=== PATIENT | female | born 1995 | race Caucasian/White ===

== ENCOUNTER 2017-01-20 13:16 | Emergency (ER) | payer OTHER ==
[2017-01-20] MEDS ORDERED: NS 0.9% 1000 ML*IV.FLUID IV ONE (13:45)
[2017-01-20] MEDS ORDERED: Ondansetron INJ* 2 MG/ML VIAL IV ONE ×2 (13:56→15:49)
[2017-01-20] MEDS ORDERED: NS 0.9% 1000 ML* 1,000 ML IV ONE (13:56)
[2017-01-20] MEDS ORDERED: Acetaminophen TAB* 325 MG PO ONE (13:56)
[2017-01-20 14:06] LABS: Hematocrit 41 % (35-47); Hemoglobin 13.9 g/dl (12.0-16.0); Mean Corpuscular HGB Conc 34 g/dl (31-36); Mean Corpuscular Hemoglobin 26 pg (27-31); Mean Corpuscular Volume 79 fL (80-97); Mean Platelet Volume 9 um3 (7.4-10.4); Red Blood Count 5.27 10^6/ul (4.0-5.4); Red Cell Distribution Width 13 % (10.5-15); White Blood Count 9.2 10^3/ul (3.5-10.8)
[2017-01-20 14:18] LABS: ALT 9 U/L (7-52); AST 11 U/L (13-39); Albumin 4.5 g/dL (3.2-5.2); Alkaline Phosphatase 43 U/L (34-104); Anion Gap 7 mmol/L (2-11); BUN/Creatinine Ratio 19.6 (8-20); Blood Urea Nitrogen 11 mg/dL (6-24); C Reactive Protein < 1.00 mg/L (< 5.00); CO2 Carbon Dioxide 23 mmol/L (22-32); Calcium 9.6 mg/dL (8.6-10.3); Chloride 103 mmol/L (101-111); EGFR African American 175.7 (>60); EGFR Non-African American 136.7 (>60); Globulin 2.8 g/dL (2-4); Glucose 102 mg/dL (70-100); Lipase 11 U/L (11.0-82.0); Potassium 3.2 mmol/L (3.5-5.0); Sodium 133 mmol/L (133-145); Total Protein 7.3 g/dL (6.4-8.9)
[2017-01-20 15:26] LABS: Urine Bacteria Absent (Absent); Urine Bilirubin Negative (Negative); Urine Glucose Negative (Negative); Urine Nitrite Negative (Negative)
[2017-01-20] MEDS ORDERED: Ondansetron ODT TAB* 4 MG PO ONE (15:49)
--- NOTE | 2017-01-20 15:52 | RAD ---
INDICATION: Early . Evaluate for ectopic COMPARISON: None TECHNIQUE: Transvaginal scanning was performed. FINDINGS: There is a single intrauterine gestation with documentation of pole, yolk sac, and cardiac activity of 93 bpm. The crown rump length measurement corresponds to a 5 week 6 day gestation and the sac size measurement to a 7 week 0 day gestation Both adnexal regions appear normal. The right ovary measures 3.4 x 4.1 x 2.7 cm in the left 4.5 x 2.5 x 3.6 cm. There is no adnexal mass. There is no subchorionic hemorrhage. There is no free fluid. IMPRESSION: EARLY INTRAUTERINE GESTATION BETWEEN 5 WEEKS 6 DAYS AND 7 WEEKS 0 DAYS.
--- NOTE | 2017-01-20 15:55 | ED ---
Abdominal Pain/Female - HPI Summary HPI Summary: 21 female presents with complains of nausea, vomiting, diarrhea and some LLQ pain that began yesterday. Nausea, vomiting and diarrhea began today. Patient states she has vomited approximately 8 times and the last few times were bile. She also has been having diarrhea. Denies any blood in vomit or stool. Has not taken any medication and has been unable to keep any food or drink down. Denies fever/chills or any eating out at restaurants recently. She took 4 at home urine tests that were all positive. ~6 weeks . Patient denies urinary frequency, urgency, burning and vaginal bleeding or discharge. Patient was told by her OBGYN it would be very difficult to become due to her endometriosis. Patient is on control however stopped taking once she had positive test. She just started a new OCP that she has been taking the past month. - History of Current Complaint Chief Complaint: EDJoaquinauseaVomitFabio Stated Complaint: 6 WEEKS PREG, VOMITING, DIARRHEA Time Seen by Provider: 01/20/17 13:25 Hx Obtained From: Patient Hx Last Menstrual Period: 12/14/15 ?: Yes Onset/Duration: Sudden Onset, Lasting Days, Worse Since Timing: Minutes Severity Initially: Mild Severity Currently: Mild Pain Intensity: 3 Pain Scale Used: 0-10 Numeric Location: Discrete At: LLQ Radiates: No Character: Cramping Aggravating Factor(s): Nothing Alleviating Factor(s): Nothing Associated Signs and Symptoms: Positive: Decreased Appetite, Nausea, Vomiting, Diarrhea. Negative: Fever, Cough, Blood in Stool, Urinary Symptoms, Vaginal Bleeding, Vaginal Discharge Allergies/Adverse Reactions: Allergies Allergy/AdvReac Type Severity Reaction Status Date / Time Shrimp Flavor Allergy Mild Dizziness Verified 12/16/15 13:24 Penicillin G Allergy Vomiting Verified 08/09/16 11:21 Tomato Allergy Headache Verified 12/16/15 13:24 potatoes Allergy Headache Uncoded 12/16/15 13:24 PMH/Surg Hx/FS Hx/Imm Hx Endocrine/Hematology History: Reports: Hx Anemia - low iron Denies: Hx Diabetes, Hx Thyroid Disease Cardiovascular History: Denies: Hx Hypercholesterolemia, Hx Hypertension, Hx Pacemaker/ICD, Hx Peripheral Vascular Disease Respiratory History: Denies: Hx Asthma, Hx Chronic Obstructive Pulmonary Disease (COPD) GI History: Reports: Other GI Disorders - HX OVARIAN CYSTS AND ENDOMETRIOSIS Denies: Hx Ulcer History: Reports: Other Problems/Disorders - endometriosis, high risk Musculoskeletal History: Denies: Hx Arthritis, Hx Rheumatoid Arthritis, Hx Osteoporosis Sensory History: Denies: Hx Cataracts, Hx Contacts or Glasses, Hx Glaucoma, Hx Hearing Aid Opthamlomology History: Denies: Hx Cataracts, Hx Contacts or Glasses, Hx Glaucoma Neurological History: Reports: Hx Headaches, Hx Migraine Denies: Hx Seizures, Hx Transient Ischemic Attacks (TIA) Psychiatric History: Denies: Hx Anxiety, Hx Depression, Hx Panic Disorder - Surgical History Surgery Procedure, Year, and Place: APPENDECTOMY 07/25/2014. foot fusion x 2. Molar extraction. Hx Anesthesia Reactions: No Infectious Disease History: No Infectious Disease History: Denies: Hx Hepatitis, Hx Human Immunodeficiency Virus (HIV), History Other Infectious Disease, Traveled Outside the [place] in Last 30 Days - Family History Known Family History: Positive: None - Social History Alcohol Use: None Hx Substance Use: No Substance Use Type: Reports: None Hx Tobacco Use: No Smoking Status (MU): Never Smoked Tobacco Review of Systems Constitutional: Negative Cardiovascular: Negative Respiratory: Negative Positive: Abdominal Pain, Vomiting, Diarrhea, Nausea Genitourinary: Negative Musculoskeletal: Negative Skin: Negative Neurological: Negative Psychological: Normal All Other Systems Reviewed And Are Negative: Yes Physical Exam Triage Information Reviewed: Yes Vital Signs On Initial Exam: Initial Vitals Temp Pulse Resp BP Pulse Ox 98.2 F 97 18 111/64 98 01/20/17 13:18 01/20/17 13:18 01/20/17 13:18 01/20/17 13:18 01/20/17 13:18 Vital Signs Reviewed: Yes Appearance: Positive: Well-Appearing, No Pain Distress, Well-Nourished Skin: Positive: Warm, Skin Color Reflects Adequate Perfusion, Dry Head/Face: Positive: Normal Head/Face Inspection Eyes: Positive: Normal, Conjunctiva Clear ENT: Positive: Normal ENT inspection, Hearing grossly normal, Pharynx normal, TMs normal. Negative: Nasal congestion, Nasal drainage Dental: Negative: Percussion Tenderness @, Cervical Lymphadenopathy Neck: Positive: Supple, Nontender, No Lymphadenopathy Respiratory/Lung Sounds: Positive: Clear to Auscultation, Breath Sounds Present Cardiovascular: Positive: Normal, RRR, Pulses are Symmetrical in both Upper and Lower Extremities Abdomen Description: Positive: No Organomegaly, Soft, Other: - minimal tenderness on deep palpation of lower LLQ.. Negative: Bruit, CVA Tenderness (R) , CVA Tenderness (L), Distended, Guarding, McBurney's Point Tenderness, Peritoneal Signs Bowel Sounds: Positive: Present, Hyperactive Pelvic Exam: Positive: external exam normal, speculum exam normal, bimanual exam normal, no cerv. motion tender, no masses, active bleeding, discharge - appeared normal. Negative: blood, cervicitis, lesions, mass, tender w/ cervical motion, tender adnexa, tender uterus Musculoskeletal: Positive: Normal, Strength/ROM Intact Neurological: Positive: Normal, Sensory/Motor Intact, Alert, Oriented to Person Place, Time, CN Intact II-III, Reflexes Intact Psychiatric: Positive: Normal, Affect/Mood Appropriate Diagnostics - Vital Signs Vital Signs Temp Pulse Resp BP Pulse Ox 01/20/17 13:33 70 116/69 98 01/20/17 13:31 73 98 01/20/17 13:18 98.2 F 97 18 111/64 98 - Laboratory Lab Results: Lab Results 01/20/17 01/20/17 01/20/17 Range/Units 13:35 13:35 13:35 WBC 9.2 (3.5-10.8) 10^3/ul RBC 5.27 (4.0-5.4) 10^6/ul Hgb 13.9 (12.0-16.0) g/dl Hct 41 (35-47) % MCV 79 L (80-97) fL MCH 26 L (27-31) pg MCHC 34 (31-36) g/dl RDW 13 (10.5-15) % Plt Count 223 (150-450) 10^3/ul MPV 9 (7.4-10.4) um3 Neut % (Auto) 85.5 H (38-83) % Lymph % (Auto) 9.8 L (25-47) % [place] % (Auto) 3.6 (1-9) % Eos % (Auto) 0.3 (0-6) % Baso % (Auto) 0.8 (0-2) % Absolute Neuts (auto) 7.9 H (1.5-7.7) 10^3/ul Absolute Lymphs (auto) 0.9 L (1.0-4.8) 10^3/ul Absolute Monos (auto) 0.3 (0-0.8) 10^3/ul Absolute Eos (auto) 0 (0-0.6) 10^3/ul Absolute Basos (auto) 0.1 (0-0.2) 10^3/ul Absolute Nucleated RBC 0 10^3/ul Nucleated RBC % 0 Sodium 133 (133-145) mmol/L Potassium 3.2 L (3.5-5.0) mmol/L Chloride 103 (101-111) mmol/L Carbon Dioxide 23 (22-32) mmol/L Anion Gap 7 (2-11) mmol/L BUN 11 (6-24) mg/dL Creatinine 0.56 (0.51-0.95) mg/dL Est GFR ( Amer) 175.7 (>60) Est GFR (Non-Af Amer) 136.7 (>60) BUN/Creatinine Ratio 19.6 (8-20) Glucose 102 H (70-100) mg/dL Lactic Acid 0.7 (0.5-2.0) mmol/L Calcium 9.6 (8.6-10.3) mg/dL Total Bilirubin 0.70 (0.2-1.0) mg/dL AST 11 L (13-39) U/L ALT 9 (7-52) U/L Alkaline Phosphatase 43 (34-104) U/L C-Reactive Protein < 1.00 (< 5.00) mg/L Total Protein 7.3 (6.4-8.9) g/dL Albumin 4.5 (3.2-5.2) g/dL Globulin 2.8 (2-4) g/dL Albumin/Globulin Ratio 1.6 (1-3) Lipase 11 (11.0-82.0) U/L Beta HCG, Quant 17596.00 mIU/mL Urine Color Urine Appearance Urine pH (5-9) Ur Specific [place] (1.010-1.030) Urine Protein (Negative) Urine Ketones (Negative) Urine Blood (Negative) Urine Nitrate (Negative) Urine Bilirubin (Negative) Urine Urobilinogen (Negative) Ur Leukocyte Esterase (Negative) Urine WBC (Auto) (Absent) Urine RBC (Auto) (Absent) Ur Squamous Epith Cells (Absent) Urine Bacteria (Absent) Urine Glucose (Negative) 01/20/17 Range/Units 15:04 WBC (3.5-10.8) 10^3/ul RBC (4.0-5.4) 10^6/ul Hgb (12.0-16.0) g/dl Hct (35-47) % MCV (80-97) fL MCH (27-31) pg MCHC (31-36) g/dl RDW (10.5-15) % Plt Count (150-450) 10^3/ul MPV (7.4-10.4) um3 Neut % (Auto) (38-83) % Lymph % (Auto) (25-47) % [place] % (Auto) (1-9) % Eos % (Auto) (0-6) % Baso % (Auto) (0-2) % Absolute Neuts (auto) (1.5-7.7) 10^3/ul Absolute Lymphs (auto) (1.0-4.8) 10^3/ul Absolute Monos (auto) (0-0.8) 10^3/ul Absolute Eos (auto) (0-0.6) 10^3/ul Absolute Basos (auto) (0-0.2) 10^3/ul Absolute Nucleated RBC 10^3/ul Nucleated RBC % Sodium (133-145) mmol/L Potassium (3.5-5.0) mmol/L Chloride (101-111) mmol/L Carbon Dioxide (22-32) mmol/L Anion Gap (2-11) mmol/L BUN (6-24) mg/dL Creatinine (0.51-0.95) mg/dL Est GFR ( Amer) (>60) Est GFR (Non-Af Amer) (>60) BUN/Creatinine Ratio (8-20) Glucose (70-100) mg/dL Lactic Acid (0.5-2.0) mmol/L Calcium (8.6-10.3) mg/dL Total Bilirubin (0.2-1.0) mg/dL AST (13-39) U/L ALT (7-52) U/L Alkaline Phosphatase (34-104) U/L C-Reactive Protein (< 5.00) mg/L Total Protein (6.4-8.9) g/dL Albumin (3.2-5.2) g/dL Globulin (2-4) g/dL Albumin/Globulin Ratio (1-3) Lipase (11.0-82.0) U/L Beta HCG, Quant mIU/mL Urine Color Yellow Urine Appearance Cloudy Urine pH 5.0 (5-9) Ur Specific [place] 1.012 (1.010-1.030) Urine Protein Negative (Negative) Urine Ketones 2+ H (Negative) Urine Blood 1+ H (Negative) Urine Nitrate Negative (Negative) Urine Bilirubin Negative (Negative) Urine Urobilinogen Negative (Negative) Ur Leukocyte Esterase 2+ H (Negative) Urine WBC (Auto) Trace(0-5/hpf) (Absent) Urine RBC (Auto) 2+(6-10/hpf) H (Absent) Ur Squamous Epith Cells Present H (Absent) Urine Bacteria Absent (Absent) Urine Glucose Negative (Negative) Result Diagrams: 01/20/17 13:35 01/20/17 13:35 Lab Statement: Any lab studies that have been ordered have been reviewed, and results considered in the medical decision making process. - Ultrasound No standard instances Ultrasound Interpretation: Positive (See Comments) - EARLY INTRAUTERINE GESTATION BETWEEN 5 WEEKS 6 DAYS AND 7 WEEKS 0 DAYS. Ultrasound Interpretation Completed By: Radiologist Re-Evaluation - Re-Evaluation First Eval Re-Evaluation Time: 15:53 Change: Improved - patient is feeling much better and is without pain Abdominal Pain Fem Course/Dx - Course Course Of Treatment: Basic labds, UA, HCG preg and ultrasound ordered. Ultrasound positive for but negative for any abnormalities or acute illness, endometrosis, ovarian cysts etc. patient had appendix out. Given Fluids , zofran and tylenol for pain and nausea. Normal pelvic and PE exam. Patient had significant relief. Was feeling much better. Appears she may have a viral syndrome due to the vomiting and diarrhea. also may be nauseous from the . Educated. Patient will be given medication safe to use in for nausea. told to take acetaminophen for pain/discomfort only if needed. Aware there was some bacteria and blood in urine however without symptoms and high suspicion for UTI will wait for culture to see if treatment is necessary. - Diagnoses Differential Diagnosis: Positive: Constipation, Ectopic , Ovarian Cyst , , Urinary Tract Infection, Other - gastroenteritis Provider Diagnoses: Gastroenteritis, Nausea/vomiting in Discharge - Discharge Plan Condition: Stable Disposition: HOME Prescriptions: Doxylamine/Pyridoxine(NF) [Diclegis (NF)] 1 tab PO BID PRN #10 tab PRN Reason: Nausea Patient Education Materials: Nausea and Vomiting in (ED), Gastroenteritis (ED) Referrals: Manuel Garber MD [Primary Care Provider] - Additional Instructions: Take prescribed medication as directed for nausea as needed. Drink plenty of fluids to stay well hydrated. Stick to bland foods such as bananas, rice, applesauce and toast to help with diarrhea. Make sure to go to your appointment with your OBGYN on Tuesday and let them know about your visit here. If you develop new symptoms or if symptoms worsen such as increasing abdominal pain, vaginal bleeding/discharge, urinary burning, frequency, vomiting blood, blood in stool please seek medical attention promptly. Tylenol is the only approved safe pain medication OTC to take while if you have headache/pain. Avoid and only take when needed.
[2017-01-20 16:14] VITALS: BP 108/60
--- NOTE | 2017-01-22 15:21 | PN ---
Progress Note - Progress Note Note: Garnderella/yeast: vaginal DNA Final: Positive Juanita Called to patient. Left message with results. Prescription for miconozole 4% cream topical sent to pharmacy d/t patient status.
== END 2017-01-20 16:13 | disposition home or self-care (01) ==
LOC: ED 13:16
DX: O26.891 Other specified pregnancy related conditions, first trimester (principal); Z3A.01 Less than 8 weeks gestation of pregnancy; R11.2 Nausea with vomiting, unspecified; R10.32 Left lower quadrant pain; R19.7 Diarrhea, unspecified
CPT/HCPCS: 36415; 76817; 80053; 81003; 81015; 83605; 83690; 84702; 85025; 86140; 87086; 87480; 87510; 87660; 96374; 96376; 99283; A9270-GY; J2405

== ENCOUNTER → 2017-10-13 00:37 | Emergency (ER) | payer OTHER ==
[2017-10-13 00:46] VITALS: BP 129/61
== END | disposition left against medical advice (07) ==
LOC: ED 00:37
DX: O20.9 Hemorrhage in early pregnancy, unspecified (principal); Z3A.09 9 weeks gestation of pregnancy; N93.9 Abnormal uterine and vaginal bleeding, unspecified; Z53.21 Procedure and treatment not carried out due to patient leaving prior to being seen by health care provider

== ENCOUNTER 2018-01-30 14:34 | Emergency (ER) | payer OTHER ==
[2018-01-30] MEDS ORDERED: NS 0.9% 1000 ML* 1,000 ML IV ONE (15:30)
--- NOTE | 2018-01-30 15:38 | ED ---
GI/ HPI - HPI Summary HPI Summary: 22 female at 25 weeks presents with lower abdominal pain and back pain for the past day. She states feels like contractions every couple hours that last hour. She states she has started spotting. She states she is been evaluated by her OB office was sent to labor and delivery for monitoring. She states the contractions pain so bad that she vomited once. Labor and delivery sent her here to evaluate for GI bug. She denies any fevers. She denies any nausea vomiting. pain is with the contractions. She denies any cough or sore throat. She denies any recent illness. She has never had this pain before. ob is dr glass. - History of Current Complaint Chief Complaint: EDAbdPain Time Seen by Provider: 01/30/18 15:18 Stated Complaint: ABD PAIN Hx Last Menstrual Period: 12/14/15 Pain Intensity: 6 - Allergy/Home Medications Allergies/Adverse Reactions: Allergies Allergy/AdvReac Type Severity Reaction Status Date / Time Penicillins Allergy Nausea And Verified 01/30/18 14:42 Vomiting shrimp Allergy Dizziness Verified 01/30/18 14:42 tomato Allergy Headache Verified 01/30/18 14:42 potatoes Allergy Headache Uncoded 01/30/18 14:42 PMH/Surg Hx/FS Hx/Imm Hx Endocrine/Hematology History: Reports: Hx Anemia - low iron Denies: Hx Diabetes, Hx Thyroid Disease Cardiovascular History: Denies: Hx Hypercholesterolemia, Hx Hypertension, Hx Pacemaker/ICD, Hx Peripheral Vascular Disease Respiratory History: Denies: Hx Asthma, Hx Chronic Obstructive Pulmonary Disease (COPD) GI History: Reports: Other GI Disorders - HX OVARIAN CYSTS AND ENDOMETRIOSIS Denies: Hx Ulcer History: Reports: Other Problems/Disorders - endometriosis, high risk Musculoskeletal History: Denies: Hx Arthritis, Hx Rheumatoid Arthritis, Hx Osteoporosis Sensory History: Denies: Hx Cataracts, Hx Contacts or Glasses, Hx Glaucoma, Hx Hearing Aid Opthamlomology History: Denies: Hx Cataracts, Hx Contacts or Glasses, Hx Glaucoma Neurological History: Reports: Hx Headaches, Hx Migraine Denies: Hx Seizures, Hx Transient Ischemic Attacks (TIA) Psychiatric History: Denies: Hx Anxiety, Hx Depression, Hx Panic Disorder - Surgical History Surgery Procedure, Year, and Place: APPENDECTOMY 07/25/2014. foot fusion x 2. Molar extraction. Hx Anesthesia Reactions: No Infectious Disease History: No Infectious Disease History: Denies: Hx Hepatitis, Hx Human Immunodeficiency Virus (HIV), History Other Infectious Disease, Traveled Outside the [place] in Last 30 Days - Family History Known Family History: Positive: None - Social History Alcohol Use: None Hx Substance Use: No Substance Use Type: Reports: None Hx Tobacco Use: No Smoking Status (MU): Never Smoked Tobacco Review of Systems Negative: Fever Negative: Chest Pain Negative: Shortness Of Breath Positive: Abdominal Pain, Vomiting All Other Systems Reviewed And Are Negative: Yes Physical Exam Triage Information Reviewed: Yes Vital Signs On Initial Exam: Initial Vitals Temp Pulse Resp BP Pulse Ox 97.8 F 87 16 110/68 97 01/30/18 14:36 01/30/18 14:36 01/30/18 14:36 01/30/18 14:36 01/30/18 14:36 Vital Signs Reviewed: Yes Appearance: Positive: Well-Appearing Skin: Positive: Warm, Dry Head/Face: Positive: Normal Head/Face Inspection Eyes: Positive: Normal, EOMI, BLANCHE, Conjunctiva Clear ENT: Positive: Normal ENT inspection, Pharynx normal, TMs normal Respiratory/Lung Sounds: Positive: Clear to Auscultation, Breath Sounds Present Cardiovascular: Positive: Normal, RRR Abdomen Description: Positive: Nontender, Soft, Other: - baby felt above umblicius Bowel Sounds: Positive: Present Musculoskeletal: Positive: Normal Neurological: Positive: Normal Psychiatric: Positive: Normal Diagnostics - Vital Signs Vital Signs Temp Pulse Resp BP Pulse Ox 01/30/18 14:36 97.8 F 87 16 110/68 97 - Laboratory Result Diagrams: 01/30/18 15:37 01/30/18 15:37 Lab Statement: Any lab studies that have been ordered have been reviewed, and results considered in the medical decision making process. GIGU Course/Dx - Course Course Of Treatment: 22 female at 25 weeks presents with lower abdominal pain and back pain for the past day. She had contractions every couple hours that last hour. She states she has started spotting. She states she is been evaluated by her OB office was sent to labor and delivery. She states the contractions pain so bad that she vomited once. Labor and delivery sent her here to evaluate for GI bug. She denies any fevers. She denies any nausea vomiting. pain is with the contractions. She denies any cough or sore throat. She denies any recent illness. She has never had this pain before. on exam abdomen soft nontender. baby felt above the umbilicus. Vitals stable. labs wbc 11. crp normal. normal rythmn stript here. will discuss with ob if needs more monitoring here. nurse talked with provider from ob and said safe to go home. told if symptoms return to call ob. patient understand and agrees with plan. - Diagnoses Differential Diagnoses - Female: Gastroenteritis (Viral), Gastroenteritis ( Bacterial), Urinary Tract Infection Provider Diagnoses: Abdominal pain during Discharge - Discharge Plan Condition: Good Disposition: HOME Patient Education Materials: Abdominal Pain in (ED) Referrals: Audra Dyson MD [Primary Care Provider] - Additional Instructions: Take tyenlol for symptoms every 6 hours Follow up with obgyn Call obgyn if contractions get closer together Return to ED if develop any new or worsening symptoms
[2018-01-30 15:55] LABS: ABS Basophils 0 10^3/ul (0-0.2); ABS Eosinophils 0.1 10^3/ul (0-0.6); ABS Lymphocytes 1.2 10^3/ul (1.0-4.8); ABS Monocytes 0.6 10^3/ul (0-0.8); ABS Neutrophils 9.7 10^3/ul (1.5-7.7); ABS Nucleated RBC 0 10^3/ul; Hematocrit 32 % (35-47); Hemoglobin 10.9 g/dl (12.0-16.0); Lymphocyte % 10.3 % (25-47); Mean Corpuscular HGB Conc 34 g/dl (31-36); Mean Corpuscular Hemoglobin 27 pg (27-31); Mean Corpuscular Volume 79 fL (80-97); Mean Platelet Volume 8 um3 (7.4-10.4); Nucleated Red Blood Cells % 0; Platelet Count 237 10^3/ul (150-450); Red Blood Count 4.09 10^6/ul (4.0-5.4); Red Cell Distribution Width 14 % (10.5-15); White Blood Count 11.6 10^3/ul (3.5-10.8)
[2018-01-30 16:46] LABS: EGFR Non-African American 161.7 (>60)
[2018-01-30 18:08] VITALS: BP 116/73
== END 2018-01-30 18:09 | disposition home or self-care (01) ==
LOC: ED 14:34
DX: O26.899 Other specified pregnancy related conditions, unspecified trimester (principal); R10.30 Lower abdominal pain, unspecified; R11.10 Vomiting, unspecified
CPT/HCPCS: 36415; 80053; 83690; 85025; 86141; 87502; 99283

== ENCOUNTER 2018-04-30 03:02 | Inpatient (IN) | payer OTHER ==
--- NOTE | 2018-04-30 05:00 | HP ---
General Information - General Information Maternal Age: 22 Grav: 3 Para: 0 SAB: 2 IEA: 0 Estimated Due Date: 05/18/18 Determined By: Early Ultrasound Gestational Age in Weeks and Days: 37 Weeks and 3 Days Maternal Blood Type and Rh: A Positive - Results this Serology/RPR Result: Non-Reactive Rubella Result: Immune HBsAg Result: Negative HIV Result: Negative GBS Culture Result: Positive Past Medical History Delivery History: See Records - molar x2 Pertinent Past Medical History: Non-Contributory Pertinent Past Surgical History: See Records Past Surgical History Comment: foot surgery x3, appy, D&C x2 Pertinent Family History: Non-Contributory - Antepartal Records Antepartal Records: Reviewed, Uncomplicated Review of Systems Constitutional: Uncomfortable CV Complaint: No Respiratory: Shortness of Breath: No Gastrointestinal: No Nausea/Vomiting Genitourinary: Leaking Fluid, No Bleeding Musculoskeletal: No Complaint Movement: Normal Exam Allergies/Adverse Reactions: Allergies Penicillins Allergy (Verified 03/09/18 23:12) Nausea And Vomiting shrimp Allergy (Verified 03/09/18 23:12) Dizziness tomato Allergy (Verified 03/09/18 23:12) Headache potatoes Allergy (Uncoded 03/09/18 23:12) Headache normal, afebrile Lab Values - Entire Visit: Laboratory Tests 04/30/18 04:00 Vag Amniotic Fld Detect Positive - Measurements Height: 5 ft 2 in Weight: 152 lb Weight in lbs: 152 Body Mass Index (BMI): 27.8 Pre- Weight: 134 lb Weight Gained This : 18 lbs and 0 ozs - Exam Abdomen: No Upper Quadrant Pain Breast: Breast Exam Deferred Heart: Normal Rhythm/Heart Sounds Lungs: Clear Bilaterally Rectal: Rectal Exam Deferred - Abdominal Exam Abdomen Exam: Non-Tender, Fundal Height Consistent with Dates - Ultrasound/Biophysical Profile Ultrasound Status: Not Done Targeted Exam Findings Cervical Exam: 3cm Effacement: 70% Station: -1 Presenting Part: Vertex Membrane Status: SROM Amniotic Fluid Evaluation: Gross Rupture, Positive ROM Plus EFM Findings - External Monitor Findings Baseline Heart Rate: 140 External Monitor Findings: Accelerations Present, No Pattern of Variable or Late Decelerations, Variability Moderate Contractions: Regular, Moderate Contraction Frequency: Q2 min Assessment/Plan - Reason for Visit Reason for Visit: 22yo at 37 wks with gross SROM at 0200 and early labor. Requesting epidural. Reassuring status. Plan PCN for GBS (pt has only had nausea with PO abx) - Obstetrical Risk Factors Obstetrical Risk Factors: GBS Positive - Plan Plan: Active Labor, Antibiotic Prophylaxis - Date/Time of Admission Date of Admission: 04/30/18 Time of Admission: 04:45
[2018-04-30] MEDS ORDERED: Penicillin G Potassium IV* 5,000,000 UNITS in NS 0.9% 100 ML* 100 ML IVPB ONE (05:30)
[2018-04-30] MEDS ORDERED: OBEPIDURAL* 250 ML EPIDURAL ONE (05:31)
[2018-04-30] MEDS ORDERED: fentaNYL* 50 MCG/ML 2 ML VIAL (100 MCG VIAL) ONE (05:32)
[2018-04-30 05:47] LABS: Hematocrit 33 % (35-47); Hemoglobin 10.7 g/dl (12.0-16.0); Mean Corpuscular HGB Conc 33 g/dl (31-36); Mean Corpuscular Hemoglobin 23 pg (27-31); Mean Corpuscular Volume 70 fL (80-97); Mean Platelet Volume 8.2 um3 (7.4-10.4); Platelet Count 259 10^3/ul (150-450); Red Blood Count 4.67 10^6/ul (4.00-5.40); Red Cell Distribution Width 15 % (10.5-15); White Blood Count 10.8 10^3/ul (3.5-10.8)
[2018-04-30 05:48] LABS: ABS Basophils 0.1 10^3/ul (0-0.2); ABS Eosinophils 0.1 10^3/ul (0-0.6); ABS Lymphocytes 1.8 10^3/ul (1.0-4.8); ABS Monocytes 0.7 10^3/ul (0-0.8); ABS Neutrophils 8.1 10^3/ul (1.5-7.7)
[2018-04-30 06:51] LABS: ABS Nucleated RBC 0 10^3/ul; Lymphocyte % 16.2 % (25-47); Nucleated Red Blood Cells % 0
[2018-04-30] MEDS: Penicillin G Potassium IV* 2,500,000 UNITS in NS 0.9% 100 ML* 100 ML IVPB SCH ×2 (10:17→14:02)
[2018-04-30] MEDS ORDERED: Oxytocin in LR* 20 UNITS/1,000 ML BAG IVPB ONE (14:07)
[2018-04-30] MEDS ORDERED: Witch Hazel PAD* JAR TOPICAL PRN (14:22)
[2018-04-30] MEDS ORDERED: Dibucaine 1% 28.35 GM TUBE PR PRN (14:22)
[2018-04-30] MEDS ORDERED: Acetaminophen TAB* 325 MG PO PRN (14:22)
--- NOTE | 2018-04-30 14:35 | PROCNOTE ---
[facility] OB: Delivery Note - Delivery A Date of : 04/30/18 Time of : 14:03 Weight at : 6 lb 13 oz Score 1 Minute: 8 Score 5 Minutes: 9 Gestational Age in Weeks and Days at Delivery: 37 Weeks and 3 Days Delivery Method: Spontaneous Vaginal Labor: Spontaneous Did Patient attempt ?: N/A, No Previous Amniotic Fluid: Clear Estimated Blood Loss: 350 Anesthesia/Analgesia: CEI for Labor Delivered By: Lizzie Kinsey - Perineum Perineal Injury: Vaginal Laceration - Small left lateral repaired with 3-0 Vicryl Rapide Perineal Repair: By Delivering Practioner - Events Delivery Events of Note: Full Course of Antibiotics
[2018-04-30] MEDS ORDERED: Oxytocin in LR* 20 UNITS/1,000 ML BAG IVPB SCH (15:00)
[2018-04-30] MEDS ORDERED: Simethicone TAB* 80 MG TAB.CHEW PO SCH (17:30)
[2018-04-30] MEDS: Ibuprofen TAB* 600 MG PO PRN (18:04)
[2018-04-30] MEDS: Docusate CAP* 100 MG PO SCH (21:22)
[2018-05-01] MEDS: Ibuprofen TAB* 600 MG PO PRN ×4 (00:04→20:17)
[2018-05-01 06:29] LABS: ABS Basophils 0.1 10^3/ul (0-0.2); ABS Eosinophils 0.1 10^3/ul (0-0.6); ABS Lymphocytes 2.2 10^3/ul (1.0-4.8); ABS Monocytes 0.8 10^3/ul (0-0.8); ABS Neutrophils 10.8 10^3/ul (1.5-7.7); ABS Nucleated RBC 0 10^3/ul; Hematocrit 27 % (35-47); Hemoglobin 8.9 g/dl (12.0-16.0); Lymphocyte % 15.7 % (25-47); Mean Corpuscular HGB Conc 33 g/dl (31-36); Mean Corpuscular Hemoglobin 23 pg (27-31); Mean Corpuscular Volume 70 fL (80-97); Mean Platelet Volume 8.1 um3 (7.4-10.4); Nucleated Red Blood Cells % 0; Platelet Count 205 10^3/ul (150-450); Red Blood Count 3.87 10^6/ul (4.00-5.40); Red Cell Distribution Width 16 % (10.5-15); White Blood Count 14.1 10^3/ul (3.5-10.8)
[2018-05-01] MEDS: Ferrous Gluconate TAB* 324 MG TAB PO SCH ×2 (09:03→20:17)
[2018-05-01] MEDS: Docusate CAP* 100 MG PO SCH ×3 (09:03→20:17)
[2018-05-02] MEDS: Docusate CAP* 100 MG PO SCH (07:53)
[2018-05-02] MEDS: Ibuprofen TAB* 600 MG PO PRN (07:53)
[2018-05-02] MEDS: Ferrous Gluconate TAB* 324 MG TAB PO SCH (09:04)
[2018-05-02 09:26] VITALS: BP 122/65
== END 2018-05-02 14:10 | disposition home or self-care (01) | DRG 775 ==
LOC: MCHOBOUT 03:02 → MCHOB 04:43
PROVIDERS: ADMIT Obstetrics & Gynecology; ATTEND Obstetrics & Gynecology
PROC: 10E0XZZ Delivery of Products of Conception, External Approach (ICD-10-PCS; principal; 2018-04-30)
PROC: 0DQR0ZZ Repair Anal Sphincter, Open Approach (ICD-10-PCS; 2018-04-30)
DX: O42.02 Full-term premature rupture of membranes, onset of labor within 24 hours of rupture (principal); O71.4 Obstetric high vaginal laceration alone; O99.824 Streptococcus B carrier state complicating childbirth; Z3A.37 37 weeks gestation of pregnancy; Z37.0 Single live birth
CPT/HCPCS: 36415; 84112; 85025; 86850; 86900; 86901; A9270-GY; J2540; J3010

== ENCOUNTER 2018-06-01 06:03 | Day surgery (SDC) | payer OTHER, MEDICAID ==
[~2018-06-01 06:03] MED LIST: Buffered Lidocaine 0.9% SYRIN* 5 ML/SYR SYRINGE INTRADERM ONE; Dexamethasone IV* 4 MG/ML 1 ML (4 MG) IV SLOW PU ONE; Famotidine IV* 10 MG/ML 2 ML (20 mg) IV ONE
[2018-06-01] MEDS ORDERED: Famotidine IV* 10 MG/ML 2 ML (20 mg) ONE (06:17)
[2018-06-01] MEDS ORDERED: Dexamethasone IV* 4 MG/ML 1 ML (4 MG) ONE (06:17)
[2018-06-01] MEDS ORDERED: ceFAZolin 2 GM PREMIX (*) 2 GM/50 ML BAG IVPB ONE (06:17)
[2018-06-01] MEDS ORDERED: Bupivacaine 0.5% PF 10 ML VIAL INJ ONE (07:05)
[2018-06-01] MEDS ORDERED: Midazolam* 1 MG/ML 2 ML VIAL (2 MG) ONE (07:13)
[2018-06-01] MEDS ORDERED: Propofol* 10 MG/ML 20 ML BTL IV PUSH ONE (07:13)
[2018-06-01] MEDS ORDERED: fentaNYL* 50 MCG/ML 2 ML VIAL (100 MCG VIAL) ONE (07:13)
[2018-06-01] MEDS ORDERED: Lidocaine 2% PF * 5 ML VIAL ONE (07:14)
[2018-06-01] MEDS ORDERED: oxyCODONE/Acetamin 5/325 MG* TAB PO PRN (07:16)
[2018-06-01] MEDS ORDERED: fentaNYL* 50 MCG/ML 2 ML VIAL (100 MCG VIAL) IV PRN (07:16)
[2018-06-01] MEDS ORDERED: Ketorolac INJ* 30 MG/ML 1 ML VIAL IV PRN (07:16)
[2018-06-01] MEDS ORDERED: Naloxone* 0.4 MG/ML 1 ML VIAL IV PRN (07:16)
[2018-06-01] MEDS ORDERED: PROCHLORPERAZINE INJ 5 MG/ML 2 ML VIAL IV PRN (07:16)
[2018-06-01] MEDS ORDERED: HYDROcodone/ACETAMIN 5-325 MG* 1 TAB PO PRN (07:16)
[2018-06-01] MEDS ORDERED: Ondansetron INJ* 2 MG/ML VIAL ONE (07:53)
[2018-06-01] MEDS ORDERED: EPHEDrine (Pressors)* 50 MG/ML VIAL ONE (07:56)
--- NOTE | 2018-06-01 08:34 | OP ---
Operative Report - Blank - Operative Report Date of Operation: 06/01/18 Note: PATIENT: Avelina Doty DATE OF : 1995 DATE OF SURGERY: 06/01/2018 SURGEON: Du Juarez MD FULL DECATOR OPERATOR: MARIE López, whos assistance was necessary for positioning , retraction, help with instrumentation, and closure. ANESTHESIOLOGIST: Dr. Paulino PREOPERATIVE DIAGNOSIS: Right foot painful retained hardware POSTOPERATIVE DIAGNOSIS: Right foot painful retained hardware OPERATION: Right foot, removal of implants, deep. ANESTHESIA: LMA IMPLANTS: none implanted TOURNIQUET TIME: Less than 1 hour with an ankle Esmarch tourniquet SPECIMENS: none ESTIMATED BLOOD LOSS: minimal COMPLICATIONS: none STATUS: Stable from the operating room to the recovery room and then home. INDICATIONS FOR PROCEDURE: Avelina has had prior midfoot fusions and has persistent pain. Both operative and non operative treatment alternatives were reviewed. Further, the nature and risks of surgery were reviewed in careful detail, in the office as well as the pre-operative holding area. Our discussions regarding the risks of surgery included, but were not limited to, infection, wound problems, nerve injury, neuroma, RSD, persistent symptoms, blood clot, need for further surgery, fracture, post-traumatic arthritis, failure of the surgery, and even the remote chance of catastrophic complication, including loss of limb. DESCRIPTION OF PROCEDURE: The patient was seen in the preoperative holding unit and informed written consent was obtained. The appropriate extremity was marked. The patient was then brought to the operating room and carefully positioned on the operating room table. Anesthesia was induced. All bony prominences were padded with great care. A chlorhexidine based pre-scrub was performed followed by a chloraprep prep and drape in standard sterile fashion. A surgical safety pause was then conducted in which we confirmed the appropriate patient, extremity, planned procedure, availability of equipment, indication and administration of prophylactic antibiotics, and DVT prophylaxis in the form of a compression boot on the non-surgical extremity. We began by placing an ankle Esmarch tourniquet. I utilized the prior dorsal foot incision to access the Lisfranc hardware. I used blunt dissection to expose the hardware and took great care not to disturb the neurovascular bundle. The hardware was exposed and a screw public transit bus driver was used to remove the screws. A freer was used to loosen the plate which was then removed. A rongeur was used to smooth out the bone. A fluoroscopic image was obtained demonstrating removal of hardware. At this point, we irrigated copiously and then closed in layers meticulously utilizing 3-0 Monocryl and 3-0 nylon for the skin. A sterile dressing was then applied. The patient was then awakened from anesthesia and transferred to the recovery room in stable condition. There were no complications. All needle and sponge counts were correct at the end of the case. ATTESTATION: I attest I was present and scrubbed and performed the critical portions of the procedure myself. POSTOPERATIVE PLAN: The plan is to remove the sutures in 2 weeks.
[2018-06-01 09:17] VITALS: BP 111/71
--- NOTE | 2018-06-01 17:46 | RAD ---
INDICATION: RIGHT foot hardware removal. Technique: 4 seconds of?fluoroscopy?was provided?for the physician proceduralist. REPORT: Spot images document removal of previous internal fixation hardware from the medial dorsal midfoot. IMPRESSION: Procedural control films. CPT II Codes: G9500
== END 2018-06-01 09:38 | disposition home or self-care (01) ==
LOC: OR 06:03
PROVIDERS: ATTEND Orthopaedic Surgery
DX: T84.84XA Pain due to internal orthopedic prosthetic devices, implants and grafts, initial encounter (principal); Y83.1 Surgical operation with implant of artificial internal device as the cause of abnormal reaction of the patient, or of later complication, without mention of misadventure at the time of the procedure; S92.811S Other fracture of right foot, sequela; X58.XXXS Exposure to other specified factors, sequela; D64.9 Anemia, unspecified; Y92.9 Unspecified place or not applicable
CPT/HCPCS: 76000; 81025; 88300; J0690; J1100; J2250; J2405; J2704; J3010

== ENCOUNTER 2018-11-28 07:09 | Emergency (ER) | payer OTHER ==
[2018-11-28 07:23] VITALS: BP 128/66
--- NOTE | 2018-11-28 07:32 | UC ---
Throat Pain/Nasal Vishal HPI - HPI Summary HPI Summary: cough x 3 days , cough is dry sore throat, nasal congestion , pnd , body aches no fever, concern about Influenza, few co-workers + for Flu - History of Current Complaint Chief Complaint: UCRespiratory Stated Complaint: SORE THROAT CHILLS CHILLS Time Seen by Provider: 11/28/18 07:23 Hx Obtained From: Patient Hx Last Menstrual Period: 10/31/18 ?: No Onset/Duration: Gradual Onset, Lasting Days - 3, Still Present Severity: Moderate Pain Intensity: 0 Cough: Nonproductive Associated Signs & Symptoms: Positive: Nasal Discharge. Negative: Dysphagia, FB Sensation, Drooling, Wheezing, Hoarseness, Sinus Discomfort, Fever, Vomiting , Rash - Allergies/Home Medications Allergies/Adverse Reactions: Allergies Allergy/AdvReac Type Severity Reaction Status Date / Time Penicillins AdvReac Nausea And Verified 11/28/18 07:19 Vomiting shrimp AdvReac Dizziness Verified 11/28/18 07:19 PMH/Surg Hx/FS Hx/Imm Hx Previously Healthy: Yes - Surgical History Surgical History: Yes Surgery Procedure, Year, and Place: APPENDECTOMY 07/25/2014. foot fusion x 2, 2011, 2013 right. Molar extraction. - Family History Known Family History: Positive: None Negative: Diabetes - Social History Alcohol Use: None Substance Use Type: None Smoking Status (MU): Never Smoked Tobacco Have You Smoked in the Last Year: No - Immunization History Most Recent Influenza Vaccination: 2014/2015 Most Recent Tetanus Shot: up to date Most Recent Pneumonia Vaccination: never Review of Systems All Other Systems Reviewed And Are Negative: Yes Constitutional: Positive: Fatigue Skin: Positive: Negative Eyes: Positive: Negative ENT: Positive: Sore Throat, Nasal Discharge Respiratory: Positive: Cough Cardiovascular: Positive: Negative Gastrointestinal: Positive: Negative Musculoskeletal: Positive: Arthralgia, Myalgia Is Patient Immunocompromised?: No Physical Exam Triage Information Reviewed: Yes Appearance: Well-Appearing, No Pain Distress, Well-Nourished Vital Signs: Initial Vital Signs Temp 98.1 F 11/28/18 07:20 Pulse 79 11/28/18 07:20 Resp 16 11/28/18 07:20 BP 128/66 11/28/18 07:20 Pulse Ox 100 11/28/18 07:20 Vital Signs Reviewed: Yes Eye Exam: Normal Eyes: Positive: Conjunctiva Clear ENT: Positive: Normal ENT inspection, Hearing grossly normal, Pharynx normal, Nasal drainage, TMs normal. Negative: Pharyngeal erythema Neck: Positive: Supple, Nontender, No Lymphadenopathy Respiratory: Positive: Chest non-tender, Lungs clear, Normal breath sounds Cardiovascular: Positive: RRR, No Murmur, Pulses Normal Skin Exam: Normal Throat Pain/Nasal Course/Dx - Differential Dx/Diagnosis Provider Diagnosis: URI (upper respiratory infection) Discharge - Sign-Out/Discharge Documenting (check all that apply): Patient Departure All imaging exams completed and their final reports reviewed: No Studies - Discharge Plan Condition: Stable Disposition: HOME Patient Education Materials: Upper Respiratory Infection (ED) Referrals: Audra Dyson MD [Primary Care Provider] - If Needed Additional Instructions: negative rapid Influenza URI viral illness cont. with rest, increase fluid, take Tylenol as needed for pain and fever follow up as needed - Billing Disposition and Condition Condition: STABLE Disposition: Home
== END 2018-11-28 07:45 | disposition home or self-care (01) ==
LOC: UCCORT 07:09
DX: J06.9 Acute upper respiratory infection, unspecified (principal); Z88.0 Allergy status to penicillin
CPT/HCPCS: 99211; G0463

== ENCOUNTER 2018-12-05 10:15 | Emergency (ER) | payer OTHER ==
--- NOTE | 2018-12-05 10:54 | ED ---
- HPI Summary HPI Summary: Patient is a 22-year-old female with 1 living child presenting to the ED at 7-8 weeks based on LMP presenting to the ED with vaginal bleeding (stating she went through 2 pads today already), and left lower quadrant pain which has been present 7 weeks. She denies fevers, sweats, chills. She has had a history of tube molar pregnancies and has been seen by a physician in [place]. She is also being seen by 1 of the midwives here at [facility]. She has a follow-up next week due to her home test. She denies any fatigue, lightheadedness. She states she has had to have D&Cs in the past for her molar pregnancies. She does not currently use control. She has never had an STD and denies chance of STDs. Denies any urinary symptoms including burning or frequency, urgency. Denies any flank pain. - History of Current Complaint Chief Complaint: EDOBProblems Stated Complaint: POSSIBLE PREG Time Seen by Provider: 12/05/18 10:37 Hx Obtained From: Patient Chief Complaint: Vaginal Bleeding Onset/Duration: Started Days Ago Timing: Constant Severity: Moderate Current Severity: Moderate Pain Intensity: 5 Location of Pain: Left Side Character: None Associated Signs and Symptoms: Positive: Negative - Assessment Hx Now: No Hx : 3 SAB: 2 IEA: 0 Hx Hysterectomy: No - Additional Pertinent History Maternal Blood Type and Rh: A Positive - Allergies/Home Medications Allergies/Adverse Reactions: Allergies Allergy/AdvReac Type Severity Reaction Status Date / Time Penicillins AdvReac Nausea And Verified 12/05/18 10:34 Vomiting shrimp AdvReac Dizziness Verified 12/05/18 10:34 PMH/Surg Hx/FS Hx/Imm Hx Previously Healthy: Yes Endocrine/Hematology History: Reports: Hx Anemia - low iron Denies: Hx Diabetes, Hx Thyroid Disease Cardiovascular History: Denies: Hx Hypercholesterolemia, Hx Hypertension, Hx Pacemaker/ICD, Hx Peripheral Vascular Disease, Other Cardiovascular Problems/Disorders Respiratory History: Denies: Hx Asthma, Hx Chronic Obstructive Pulmonary Disease (COPD), Other Respiratory Problems/Disorders GI History: Denies: Hx Ulcer, Other GI Disorders History: Reports: Other Problems/Disorders - endometriosis, high risk Musculoskeletal History: Denies: Hx Arthritis, Hx Rheumatoid Arthritis, Hx Osteoporosis Sensory History: Denies: Hx Cataracts, Hx Contacts or Glasses, Hx Glaucoma, Hx Hearing Aid Opthamlomology History: Denies: Hx Cataracts, Hx Contacts or Glasses, Hx Glaucoma Neurological History: Reports: Hx Headaches, Hx Migraine Denies: Hx Seizures, Hx Transient Ischemic Attacks (TIA), Other Neuro Impairments/Disorders Psychiatric History: Denies: Hx Anxiety, Hx Depression, Hx Panic Disorder - Surgical History Surgery Procedure, Year, and Place: APPENDECTOMY 07/25/2014. foot fusion x 2, 2011, 2013 right. Molar extraction. Hx Anesthesia Reactions: No Infectious Disease History: No Infectious Disease History: Denies: Hx Hepatitis, Hx Human Immunodeficiency Virus (HIV), History Other Infectious Disease, Traveled Outside the [place] in Last 30 Days - Family History Known Family History: Positive: None Negative: Diabetes - Social History Occupation: Unemployed Lives: Alone Alcohol Use: None Hx Substance Use: No Substance Use Type: Reports: None Hx Tobacco Use: No Smoking Status (MU): Never Smoked Tobacco Have You Smoked in the Last Year: No Review of Systems Constitutional: Negative Negative: Fever, Chills, Fatigue, Skin Diaphoresis Negative: Palpitations, Chest Pain Negative: Shortness Of Breath, Cough Positive: Abdominal Pain - LLQ Genitourinary: Negative Positive: no symptoms reported, other - vaginal bleeding Negative: Arthralgia Skin: Negative All Other Systems Reviewed And Are Negative: Yes Physical Exam - Physical Exam Triage Information Reviewed: Yes Appearance: Positive: Well-Appearing, Well-Nourished Skin: Positive: Warm, Skin Color Reflects Adequate Perfusion Head/Face: Positive: Normal Head/Face Inspection Eyes: Positive: EOMI, BLANCHE, Conjunctiva Clear Neck: Positive: No Lymphadenopathy Respiratory/Lung Sounds: Positive: Clear to Auscultation, Breath Sounds Present Cardiovascular: Positive: RRR, Pulses are Symmetrical in both Upper and Lower Extremities Abdomen Description: Positive: Other: - tenderness to the LLQ Musculoskeletal: Positive: Normal, Strength/ROM Intact Neurological: Positive: Sensory/Motor Intact, Alert, Oriented to Person Place, Time Psychiatric: Positive: Normal, Affect/Mood Appropriate AVPU Assessment: Alert Diagnostics - Vital Signs Vital Signs Temp Pulse Resp BP Pulse Ox 12/05/18 10:30 98.1 F 82 17 131/74 99 - Laboratory Result Diagrams: 12/05/18 09:57 12/05/18 09:57 Lab Statement: Any lab studies that have been ordered have been reviewed, and results considered in the medical decision making process. Course/Dx - Course Course Of Treatment: During this course of treatment, the patient is evaluated for vaginal bleeding with at home positive test. She states she is 7- 8 weeks based on her LMP. She states she has soaked through 2 pads today and this is slightly heavier than her periods. She endorses left lower quadrant pain without RLQ pain or pain to the other quadrants. Denies any nausea, vomiting, diarrhea, constipation. She has not had an hCG drawn for this , however has a follow-up next week to her DOPE WEIGH OPERATOR. Transvaginal ultrasound obtained which shows a normal and age appropriate pelvic ultrasound. There is no visualization of the gestational sac or products of conception. Due to her history of molar , I have advised serial hCGs, she will follow up in 2+ days with her DOPE WEIGH OPERATOR/livestock sales representative for a redraw of an hCG. She is otherwise stable and vital signs are stable. She is okay for discharge at this time. She is encouraged to return to the ED if she has any worsening bleeding, specifically more than 1 pad per hour. UA shows UTI. Bactrim x 5 days. - Diagnoses Provider Diagnoses: Vaginal bleeding, Left lower quadrant pain Discharge - Sign-Out/Discharge Documenting (check all that apply): Patient Departure - Discharge Plan Condition: Stable Disposition: HOME Prescriptions: Sulfamethox/Trimethoprim SS* [Bactrim SS 400/80 TAB*] 1 tab PO BID #10 tab Referrals: Audra Dyson MD [Primary Care Provider] - Additional Instructions: Please follow up with your OBGYN for serial HCG's as discussed. If you develop any worsening bleeding or pain - return to the ED - Billing Disposition and Condition Condition: STABLE Disposition: Home
[2018-12-05 10:58] LABS: ABS Basophils 0.1 10^3/ul (0-0.2); ABS Eosinophils 0.2 10^3/ul (0-0.6); ABS Lymphocytes 1.7 10^3/ul (1.0-4.8); ABS Monocytes 0.5 10^3/ul (0-0.8); ABS Neutrophils 6.3 10^3/ul (1.5-7.7); ABS Nucleated RBC 0 10^3/ul; Eosinophil % 2.5 %; Hematocrit 40 % (35-47); Hemoglobin 13.3 g/dl (12.0-16.0); Lymphocyte % 18.9 %; Mean Corpuscular HGB Conc 33 g/dl (31-36); Mean Corpuscular Hemoglobin 26 pg (27-31); Mean Corpuscular Volume 77 fL (80-97); Mean Platelet Volume 7.7 fL (7.4-10.4); Nucleated Red Blood Cells % 0; Platelet Count 287 10^3/ul (150-450); Red Blood Count 5.15 10^6/ul (4.00-5.40); Red Cell Distribution Width 15 % (10.5-15); White Blood Count 8.8 10^3/ul (3.5-10.8)
[2018-12-05 11:21] LABS: Albumin 4.2 g/dL (3.2-5.2); Albumin/Globulin Ratio 1.3 (1-3); BUN/Creatinine Ratio 27.9 (8-20); Calcium 9.6 mg/dL (8.6-10.3); EGFR Non-African American 122.6 (>60); Globulin 3.2 g/dL (2-4); HCG Pregnancy 51.93 mIU/mL; Potassium 3.8 mmol/L (3.5-5.0); Total Bilirubin 0.3 mg/dL (0.2-1.0); Total Protein 7.4 g/dL (6.4-8.9)
[2018-12-05 13:26] LABS: Urine Appearance Clear; Urine Bacteria Absent (Absent); Urine Bilirubin Negative (Negative); Urine Blood 3+ (Negative); Urine Color Yellow; Urine Glucose Negative (Negative); Urine Ketones Negative (Negative); Urine Nitrite Negative (Negative); Urine Protein Negative (Negative); Urine Red Blood Cell 3+(>10/hpf) (Absent); Urine Specific Gravity 1.016 (1.010-1.030); Urine Urobilinogen Negative (Negative); Urine White Blood Cell 2+(11-20/hpf) (Absent)
[2018-12-05] MEDS ORDERED: Sulfamethox/Trimethoprim SS 400/80* TAB PO ONE (13:28)
[2018-12-05 13:33] VITALS: BP 117/78
== END 2018-12-05 13:32 | disposition home or self-care (01) ==
LOC: ED 10:15
DX: O46.91 Antepartum hemorrhage, unspecified, first trimester (principal); R10.32 Left lower quadrant pain; Z3A.01 Less than 8 weeks gestation of pregnancy
CPT/HCPCS: 36415; 76830; 80053; 81003; 81015; 84702; 85025; 86850; 86900; 86901; 87086; 99282; A9270-GY

== ENCOUNTER → 2019-03-19 17:38 | Emergency (ER) | payer OTHER ==
[~2019-03-19 17:38] MED LIST changes: -Buffered Lidocaine 0.9% SYRIN* 5 ML/SYR SYRINGE INTRADERM ONE; -Dexamethasone IV* 4 MG/ML 1 ML (4 MG) IV SLOW PU ONE; -Famotidine IV* 10 MG/ML 2 ML (20 mg) IV ONE; +Iodixanol* (CONTRAST) 320 MG/ML 100 ML SDV IV ONE; +Ketorolac INJ* 30 MG/ML 1 ML VIAL IV PUSH ONE
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
[2019-03-19 18:25] LABS: ABS Basophils 0.1 10^3/ul (0-0.2); ABS Eosinophils 0.5 10^3/ul (0-0.6); ABS Lymphocytes 1.2 10^3/ul (1.0-4.8); ABS Monocytes 0.5 10^3/ul (0-0.8); ABS Neutrophils 6.7 10^3/ul (1.5-7.7); Eosinophil % 5.4 %; Hematocrit 38 % (35-47); Hemoglobin 12.8 g/dL (12.0-16.0); Lymphocyte % 13.2 %; Mean Corpuscular HGB Conc 34 g/dL (31-36); Mean Corpuscular Hemoglobin 27 pg (27-31); Mean Corpuscular Volume 78 fL (80-97); Nucleated Red Blood Cells % 0.1; Platelet Count 229 10^3/uL (150-450); Red Blood Count 4.83 10^6 /uL (3.70-4.87); Red Cell Distribution Width 15 % (10.5-15); White Blood Count 8.9 10^3/uL (3.5-10.8)
[2019-03-19 18:42] LABS: ALT 14 U/L (7-52); AST 16 U/L (13-39); Albumin 4.4 g/dL (3.2-5.2); Albumin/Globulin Ratio 1.7 (1-3); Alkaline Phosphatase 48 U/L (34-104); Anion Gap 5 mmol/L (2-11); BUN/Creatinine Ratio 20.5 (8-20); Blood Urea Nitrogen 17 mg/dL (6-24); CO2 Carbon Dioxide 28 mmol/L (22-32); Calcium 9.3 mg/dL (8.6-10.3); Chloride 105 mmol/L (101-111); Creatine Kinase 58 U/L (10-223); EGFR African American 103.1 (>60); EGFR Non-African American 85.2 (>60); Globulin 2.6 g/dL (2-4); Glucose 101 mg/dL (70-100); Potassium 3.9 mmol/L (3.5-5.0); Sodium 138 mmol/L (135-145)
[2019-03-19 18:47] LABS: HCG Pregnancy < 0.60 mIU/mL
[2019-03-19 20:57] VITALS: BP 126/69
== END | disposition home or self-care (01) ==
LOC: ED 17:38
DX: R10.9 Unspecified abdominal pain (principal); M25.551 Pain in right hip; M25.511 Pain in right shoulder; V49.50XA Passenger injured in collision with unspecified motor vehicles in traffic accident, initial encounter; Y92.410 Unspecified street and highway as the place of occurrence of the external cause; D64.9 Anemia, unspecified; Z88.0 Allergy status to penicillin
CPT/HCPCS: 36415; 71260; 72125; 74177; 80053; 82550; 84702; 85025; 86850; 86900; 86901; 96374; 99282; Q9967

== ENCOUNTER 2019-10-05 17:03 | Emergency (ER) | payer OTHER ==
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
[2019-10-05 21:00] VITALS: BP 122/88
== END 2019-10-05 21:04 | disposition home or self-care (01) ==
LOC: ED 17:03
DX: M79.661 Pain in right lower leg (principal); D64.9 Anemia, unspecified; Z90.89 Acquired absence of other organs; Z88.0 Allergy status to penicillin
CPT/HCPCS: 99281

== ENCOUNTER 2023-02-10 18:03 | Observation (INO) ==
[2023-02-10 18:48] LABS: INR 1.24 (0.88-1.18)
[2023-02-10 18:49] LABS: ABS Basophils 0.1 10^3/ul (0-0.2); ABS Eosinophils 0.2 10^3/ul (0-0.6); ABS Lymphocytes 1.7 10^3/ul (1.0-4.8); ABS Monocytes 0.4 10^3/ul (0-0.8); ABS Neutrophils 4.5 10^3/ul (1.5-7.7); Eosinophil % 2.6 %; Hematocrit 41 % (35-47); Hemoglobin 13.9 g/dL (12.0-16.0); Lymphocyte % 24.6 %; Mean Corpuscular Hemoglobin 28 pg (27-31); Mean Corpuscular Hgb Conc 34 g/dL (31-36); Mean Corpuscular Volume 81 fL (80-97); Mean Platelet Volume 7.7 fL (7.4-10.4); Nucleated Red Blood Cells % 0.1; Platelet Count 276 10^3/uL (150-450); Red Blood Count 5.01 10^6 /uL (3.70-4.87); Red Cell Distribution Width 13 % (10-15); White Blood Count 6.7 10^3/uL (3.5-10.8)
[2023-02-10 19:04] LABS: High Sens Troponin Baseline < 3 pg/mL (<15)
[2023-02-10 19:05] LABS: Urine Appearance Clear; Urine Bilirubin Negative (Negative); Urine Blood Negative (Negative); Urine Color Colorless; Urine Glucose Negative (Negative); Urine Ketones Negative (Negative); Urine Nitrite Negative (Negative); Urine Protein Negative (Negative); Urine Specific Gravity 1.001 (1.002-1.030); Urine Urobilinogen Negative (Negative)
[2023-02-10 19:42] LABS: TSH Ultra Thyroid Stim Horm 0.5 mcIU/mL (0.34-5.60)
[2023-02-10 19:44] LABS: Free T4 1.11 ng/dL (0.61-1.12)
[2023-02-10 19:53] LABS: ALT 9 U/L (7-52); AST 11 U/L (13-39); Albumin 4.5 g/dL (3.2-5.2); Albumin/Globulin Ratio 1.7 (1-3); Alkaline Phosphatase 50 U/L (35-149); Anion Gap 9 mmol/L (2-11); Blood Urea Nitrogen 9 mg/dL (6-24); CO2 Carbon Dioxide 27 mmol/L (22-32); Calcium 9.7 mg/dL (8.6-10.3); Chloride 102 mmol/L (101-111); Creatinine, Serum 0.62 mg/dL (0.51-0.95); Globulin 2.6 g/dL (2-4); Glucose 100 mg/dL (70-100); Potassium 3.7 mmol/L (3.5-5.0); Sodium 138 mmol/L (135-145); Total Protein 7.1 g/dL (6.4-8.9); eGFR CKD-EPI 125.1 (>60)
[2023-02-10 20:05] LABS: High Sensitivity Troponin 1 Hr < 3 pg/mL (<15)
[2023-02-10] MEDS ORDERED: NS 0.9% 1000 ml BAG 1,000 ML IV ONE (22:39)
[2023-02-11 00:38] LABS: Magnesium 1.9 mg/dL (1.9-2.7)
[2023-02-11] MEDS ORDERED: Magnesium Sulfate IV 1GM/100ML 1 GM/100 ML BAG IV ONE (01:28)
[2023-02-11] MEDS ORDERED: Potassium Chlor 20 meq TAB.ER PO ONE (01:29)
[2023-02-11] MEDS ORDERED: Potassium Chlor 10 meq TAB PO ONE (01:29)
[2023-02-11] MEDS ORDERED: Cosyntropin 0.25 MG VIAL IV ONE (08:00)
[2023-02-11] MEDS ORDERED: NS 0.9% 1000 ml BAG 1,000 ML IV SCH (08:15)
[2023-02-11 08:26] LABS: Calcium 9.1 mg/dL (8.6-10.3); Magnesium 2.1 mg/dL (1.9-2.7); Potassium 3.8 mmol/L (3.5-5.0)
[2023-02-11 08:31] LABS: Creatinine, Serum 0.58 mg/dL (0.51-0.95); eGFR CKD-EPI 127.1 (>60)
[2023-02-11 10:44] VITALS: BP 112/73
[2023-02-12 14:34] LABS: ACTH 18 pg/mL
== END 2023-02-11 12:15 | disposition home or self-care (01) ==
LOC: EDHOLD 18:03 → ED 18:03 → SUATTDRO 02-11 00:20 → MED 02-11 01:39
PROVIDERS: ADMIT Internal Medicine; ATTEND Internal Medicine